=== PATIENT | female | born 1995 | race African-American/Black ===

== ENCOUNTER 2016-12-28 16:32 | Emergency (ER) | payer MEDICAID ==
[~2016-12-28] VITALS: Ht 167.6 cm; Wt 91.6 kg
[2016-12-28 16:45] VITALS: BP 107/74
== END 2016-12-28 19:19 | disposition home or self-care (01) ==
LOC: ER 16:42
DX: N93.9 Abnormal uterine and vaginal bleeding, unspecified (principal)
CPT/HCPCS: 36415; 76856; 84702